=== PATIENT | female | born 1960 | race Caucasian/White ===

== ENCOUNTER → 2019-08-25 | Outpatient (CLI) | payer BC | LOC: MC.RAD 11:12 | DX: Z12.31 Encounter for screening mammogram for malignant neoplasm of breast (principal); N64.89 Other specified disorders of breast ==

== ENCOUNTER → 2019-09-08 | Outpatient (CLI) | payer BC | LOC: MC.RAD 07:27 | DX: N63.10 Unspecified lump in the right breast, unspecified quadrant (principal) | CPT/HCPCS: G0279 ==

== ENCOUNTER → 2020-08-27 | Outpatient (CLI) | payer BC | LOC: MC.RAD 15:09 | DX: Z12.31 Encounter for screening mammogram for malignant neoplasm of breast (principal) ==

== ENCOUNTER → 2021-03-10 | Outpatient (CLI) | payer BC | LOC: COL.RAD 11:40 | DX: R93.89 Abnormal findings on diagnostic imaging of other specified body structures (principal); R60.9 Edema, unspecified; R10.2 Pelvic and perineal pain ==

== ENCOUNTER → 2021-03-11 | Outpatient (CLI) | payer BC | LOC: COL.RAD 07:29 | DX: R93.89 Abnormal findings on diagnostic imaging of other specified body structures (principal); R60.9 Edema, unspecified; R52 Pain, unspecified ==